=== PATIENT | female | born 1985 | race Two or more races ===

== ENCOUNTER 2020-11-13 09:37 | Day surgery (SDC) | payer OTHER ==
[~2020-11-13 09:37] MED LIST: AZELASTINE137 MCG/0. NASAL; BUSPAR PO; CELEBREX200MG PO; DICY20TA PO; FLONASE16 GM; PEPCID40 MG PO; PROTONIX40 MG PO; VISTARIL50 MG PO; ZANAFLEX2 M1 PO; ZYRTEC10 M3 PO
[2020-11-13] MEDS ORDERED: IBU800 MG PO (19:42)
[2020-11-13] MEDS ORDERED: AMOXICILLIN500 M1 PO (19:42)
== END 2020-11-14 01:40 | disposition home or self-care (01) ==
LOC: CIR.AMB 09:37
PROVIDERS: ATTEND Otolaryngology Otology & Neurotology
DX: J34.1 Cyst and mucocele of nose and nasal sinus (principal); Z20.822 Contact with and (suspected) exposure to COVID-19